=== PATIENT | female | born 1970 | race African-American/Black ===

== ENCOUNTER 2017-07-30 05:11 | Observation (INO) | payer BC ==
[~2017-07-30] VITALS: Ht 160 cm; Wt 79.0 kg
[~2017-07-30 05:11] MED LIST: NO
[2017-07-30 05:45] LABS: HEMATOCRIT 39.4 % (37.0-47.0); HEMOGLOBIN 13.6 g/dl (12.0-16.0); IMMATURE GRANULOCYTES 0.4 % (0.0-1.0); MEAN CELL VOLUME 88.1 fL CALC (80.0-100.0); MEAN CORPUSCULAR HGB 30.4 pG CALC (26.0-32.0); MEAN CORPUSCULAR HGB CONC 34.5 g/L CALC (32.0-36.0); NEUT# 2.54 thou/uL (2.00-7.15); RED BLOOD COUNT 4.47 mill/uL (4.20-5.60); RED CELL DISTRI WIDTH 12.8 % (11.5-15.5)
[2017-07-30 05:57] LABS: ANION GAP 17 (6-22 (CALC)); BILIRUBIN, TOTAL 0.4 mg/dL (0.0-1.4); BUN 12 mg/dL (7-17); BUN/CREATININE RATIO 12 (12-20 (CALC)); CARBON DIOXIDE 23 mmol/l (22-30); CHLORIDE 105 mmol/l (95-108); GFR 59 ML/MIN (>=60 (CALC)); GFR FOR AFR.AMER. > 60 ML/MIN (>=60 (CALC)); POTASSIUM 3.9 mmol/l (3.5-5.1); SGOT/AST 23 u/l (14-36); SGPT/ALT 30 u/l (9-52); SODIUM 142 mmol/l (137-146); TOTAL PROTEIN 8.1 g/dL (6.3-8.2)
[2017-07-30 05:59] LABS: ALKALINE PHOSPHATASE 82 u/l (38-126)
[2017-07-30 06:09] LABS: MYOGLOBIN 31 ng/mL (0 - 62)
[2017-07-30 07:06] LABS: URINE BILIRUBIN - DIPSTICK NEGATIVE (NEGATIVE); URINE BLOOD DIPSTICK NEGATIVE (NEGATIVE); URINE CLARITY SL CLOUDY; URINE COLOR YELLOW; URINE GLUCOSE - DIPSTICK NEGATIVE (NEGATIVE); URINE KETONE NEGATIVE (NEGATIVE); URINE LEUK ESTERASE NEGATIVE (NEGATIVE); URINE NITRITE - DIPSTICK NEGATIVE (Negative); URINE PH 6.5 (4.5-8.0); URINE PROTEIN - DIPSTICK NEGATIVE (NEG-TRACE); URINE UROBILINOGEN - DIPSTICK 0.2 E.U./dL (0.2)
[2017-07-30 08:05] VITALS: BP 136/75
[2017-07-30 08:58] LABS: CHOLESTEROL HDL RATIO 4.5 (<4.4 (CALC))
[2017-07-30 11:00] VITALS: BP 125/54
[2017-07-30 16:00] VITALS: BP 123/75
[2017-07-30] MEDS ORDERED: PEPCID20 MG PO (18:36)
[2017-07-30] MEDS ORDERED: ASPIRIN ADULT L81 M2 PO (18:36)
== END 2017-07-30 19:33 | disposition home or self-care (01) | DRG 313 ==
LOC: ED 05:11 → ED-I 05:35 → ED 06:52 → MS2 06:53
PROVIDERS: Emergency Medicine; Nurse Practitioner Family; ADMIT Internal Medicine; ATTEND Internal Medicine
DX: R07.9 Chest pain, unspecified (principal); K21.9 Gastro-esophageal reflux disease without esophagitis; I10 Essential (primary) hypertension; Z84.89 Family history of other specified conditions
CPT/HCPCS: G0378

== ENCOUNTER 2021-12-21 04:42 | Emergency (ER) | payer BC ==
[~2021-12-21] VITALS: Ht 160 cm; Wt 82.0 kg
[2021-12-21] VITALS (7 sets, daily range): BP systolic 145–164; BP diastolic 86–93
[~2021-12-21 04:42] MED LIST changes: +ASPIRIN ADULT L81 M2 PO; +FAMOTIDINE20 M1 PO; +LORATADINE10 M1 PO; +NORVASC5 M1 PO; +PEPCID20 MG PO; +XANAX0.5 MG PO
[2021-12-21] MEDS ORDERED: LOSARTAN POTASS25 MG PO (05:23)
[2021-12-21 05:29] LABS: HEMATOCRIT 37.6 % (37.0-47.0); HEMOGLOBIN 12.7 g/dl (12.0-16.0); IMMATURE GRANULOCYTES 0.4 % (0.0-5.0); MEAN CELL VOLUME 88.1 fL CALC (80.0-100.0); MEAN CORPUSCULAR HGB 29.7 pG CALC (26.0-32.0); MEAN CORPUSCULAR HGB CONC 33.8 g/dL CAL (32.0-36.0); NEUT# 2.89 thou/uL (2.00-7.15); RED BLOOD COUNT 4.27 mill/uL (4.20-5.60)
[2021-12-21 05:46] LABS: ALBUMIN 4.1 g/dL (3.2-5.0); ALKALINE PHOSPHATASE 74 u/l (38-126); AMYLASE 91 u/l (30-110); ANION GAP 11 (6-22 (CALC)); BILIRUBIN, TOTAL 0.4 mg/dL (0.0-1.4); BUN 10 mg/dL (7-17); BUN/CREATININE RATIO 10 (12-20 (CALC)); CARBON DIOXIDE 26 mmol/l (22-30); CHLORIDE 108 mmol/l (95-108); GFR FOR AFR.AMER. > 60 ML/MIN (>=60 (CALC)); GFR OTHER RACES 58 ML/MIN (>=60 (CALC)); LIPASE 139 u/l (23-300); SGOT/AST 18 u/l (14-36); SODIUM 141 mmol/l (137-146); TOTAL PROTEIN 7.8 g/dL (6.3-8.2)
[2021-12-21 05:47] LABS: URINE BILIRUBIN - DIPSTICK NEGATIVE (NEGATIVE); URINE BLOOD DIPSTICK NEGATIVE (NEGATIVE); URINE COLOR YELLOW; URINE GLUCOSE - DIPSTICK NEGATIVE (NEGATIVE); URINE KETONE NEGATIVE (NEGATIVE); URINE LEUK ESTERASE MODERATE (NEGATIVE); URINE NITRITE - DIPSTICK NEGATIVE (Negative); URINE PROTEIN - DIPSTICK NEGATIVE (NEG-TRACE); URINE UROBILINOGEN - DIPSTICK 0.2 E.U./dL (0.2)
[2021-12-21 05:54] LABS: URINE BACTERIA MANY hpf; URINE SQUAMOUS EPITHELIAL CELL FEW EPI/hpf (0-FEW); URINE WBC 20-50 WBC/hpf (0-5)
[2021-12-21 05:58] LABS: MYOGLOBIN 31 ng/mL (0 - 62)
[2021-12-21] MEDS ORDERED: ONDANSETRON4 MG PO (06:56)
[2021-12-21] MEDS ORDERED: CIPROFLOXACN500 MG PO (06:56)
[2021-12-21] MEDS ORDERED: ULTRAM50 M1 PO (06:56)
[2021-12-21] MEDS ORDERED: PREVACID30 M3 PO (06:56)
== END 2021-12-21 07:35 | disposition home or self-care (01) | DRG 392 ==
LOC: ED 04:42
PROVIDERS: Emergency Medicine
DX: K29.70 Gastritis, unspecified, without bleeding (principal); I10 Essential (primary) hypertension; N39.0 Urinary tract infection, site not specified
CPT/HCPCS: J1956; Q9967; S0164

== ENCOUNTER 2023-05-18 23:04 | Emergency (ER) | payer BC ==
[~2023-05-18] VITALS: Ht 160 cm; Wt 81.6 kg
[~2023-05-18 23:04] MED LIST changes: +CIPROFLOXACN500 MG PO; +LOSARTAN POTASS25 MG PO; +ONDANSETRON4 MG PO; +PREVACID30 M3 PO; +ULTRAM50 M1 PO
[2023-05-19] VITALS (11 sets, daily range): BP systolic 136–162; BP diastolic 60–86
[2023-05-19] MEDS ORDERED: FLAXSEED OIL1200 MG PO (00:45)
[2023-05-19] MEDS ORDERED: LUMIGAN0.01 % OU (00:48)
[2023-05-19] MEDS ORDERED: AZELASTINE HYD0.15 % (00:50)
[2023-05-19 00:56] LABS: BASO% 0.7 % (0-3); EOS% 1.1 % (0-8); HEMATOCRIT 41.9 % (37.0-47.0); HEMOGLOBIN 13.9 g/dl (12.0-16.0); IMMATURE GRANULOCYTES 0.7 % (0.0-5.0); LYMPH% 35.3 % (15-41); MEAN CELL VOLUME 90.5 fL CALC (80.0-100.0); MEAN CORPUSCULAR HGB CONC 33.2 g/dL CAL (32.0-36.0); MONO% 9.1 % (2-13); NEUT# 2.96 thou/uL (2.00-7.15); NEUT% 53.1 % (42-76); RED BLOOD COUNT 4.63 mill/uL (4.20-5.60); RED CELL DISTRI WIDTH 12.9 % (11.5-15.5)
[2023-05-19 00:59] LABS: ALBUMIN 4.5 g/dL (3.2-5.0); ALKALINE PHOSPHATASE 79 u/l (38-126); ANION GAP 15 (6-22 (CALC)); BILIRUBIN, TOTAL 0.6 mg/dL (0.02-1.3); BUN 13 mg/dL (7-17); BUN/CREATININE RATIO 14 (12-20 (CALC)); CARBON DIOXIDE 21 mmol/l (22-30); CHLORIDE 110 mmol/l (95-108); GFR FOR AFR.AMER. > 60 ML/MIN (>=60 (CALC)); GFR OTHER RACES 58 ML/MIN (>=60 (CALC)); POTASSIUM 4.4 mmol/l (3.5-5.1); SGOT/AST 31 u/l (14-36); SODIUM 141 mmol/l (137-146)
== END 2023-05-19 05:09 | disposition home or self-care (01) | DRG 392 ==
LOC: ED 23:04
PROVIDERS: Family Medicine
DX: K21.9 Gastro-esophageal reflux disease without esophagitis (principal); F41.9 Anxiety disorder, unspecified; I10 Essential (primary) hypertension
CPT/HCPCS: S0164